=== PATIENT | female | born 1950 | race African-American/Black ===

== ENCOUNTER 2016-12-19 14:15 | Emergency (ER) | payer MEDICARE, SELFPAY ==
[2016-12-19] MEDS ORDERED: Bacitracin Zinc 1 Packet ONE (14:41)
[2016-12-19] MEDS ORDERED: traMADol HCl 50 MG TAB ONE (14:41)
--- NOTE | 2016-12-19 15:41 | RAD ---
LEFT HIP TWO VIEWS: 12/19/16 HISTORY: Trauma. Left hip injury. FINDINGS: There is mild joint space narrowing and osteophytosis. No acute fracture, dislocation, or aggressive osseous erosions are apparent. IMPRESSION: Mild osteoarthritic changes left hip. POS: [facility]
--- NOTE | 2016-12-19 15:56 | RAD ---
LEFT KNEE FOUR VIEWS: History: Patient tripped on sidewalk. Left knee injury. Incident occurred approximately 15 minutes a go. Comparison: None. FINDINGS: Joint spaces are preserved. No fracture or malalignment. No joint effusion. IMPRESSION: No post-traumatic sequellae. POS: [facility]
--- NOTE | 2016-12-19 16:01 | RAD ---
LEFT FOOT THREE VIEWS: History: Fall, left foot injury. FINDINGS: There is less than one-quarter shaft width lateral dislocation of the 2nd through 5th metatarsals in relation to the corresponding tarsal bones. Osteophytosis is present throughout the foot. No fractu re fragments are reliably demonstrated. IMPRESSION: 1. Lateral incongruity of the second through fifth tarsal metatarsal joints. Findings were called to Jacquelyn in the Emergency Department at 1540 hours. POS: [facility]
== END 2016-12-19 16:15 | disposition home or self-care (01) ==
LOC: ERS 14:15
DX: S93.325A Dislocation of tarsometatarsal joint of left foot, initial encounter (principal); I48.91 Unspecified atrial fibrillation; E11.9 Type 2 diabetes mellitus without complications; K21.9 Gastro-esophageal reflux disease without esophagitis; Z79.4 Long term (current) use of insulin; F17.210 Nicotine dependence, cigarettes, uncomplicated; Z79.899 Other long term (current) drug therapy; W01.0XXA Fall on same level from slipping, tripping and stumbling without subsequent striking against object, initial encounter; Y93.01 Activity, walking, marching and hiking
CPT/HCPCS: 29515